=== PATIENT | male | born 1980 | race Two or more races ===

== ENCOUNTER 2023-02-04 07:03 | Outpatient (CLI) | payer OTHER | END 2023-02-04 07:05 | disposition home or self-care (01) | LOC: LAB 07:03 | PROVIDERS: ATTEND Otolaryngology | DX: R22.1 Localized swelling, mass and lump, neck (principal) ==

== ENCOUNTER 2023-02-04 07:28 | Outpatient (CLI) | payer OTHER | END 2023-02-04 08:10 | disposition home or self-care (01) | LOC: TOM 07:28 | PROVIDERS: ATTEND Otolaryngology | DX: R22.1 Localized swelling, mass and lump, neck (principal); Q18.0 Sinus, fistula and cyst of branchial cleft ==

== ENCOUNTER → 2023-04-07 06:24 | Outpatient (CLI) | payer OTHER ==
[2023-04-07 08:11] LABS: ALBUMIN 3.6 gm/dL (3.4-5.0); BILIRUBIN TOTAL 0.59 mg/dL (0.3-1.2); CALCIUM 8.8 mg/dL (8.5-10.1); CREATININE SERUM 0.96 mg/dL (0.70-1.30); GFR 85.09; GLOBULINA 4.1 G/DL (2.4-3.5); POTASSIUM 4.09 mEq/L (3.5-5.1); T4 FREE 1.01 NG/ML (0.76-1.46); TOTAL PROTEIN 7.7 gm/dL (6.4-8.2); TSH 1.02 uIU/mL (0.358-3.74)
== END | disposition home or self-care (01) ==
LOC: LAB 06:24
PROVIDERS: ATTEND Otolaryngology
DX: E04.1 Nontoxic single thyroid nodule (principal)

== ENCOUNTER 2023-04-22 14:06 | Outpatient (CLI) | payer OTHER | END 2023-04-22 14:09 | disposition home or self-care (01) | LOC: SONOGRAMA 14:06 | PROVIDERS: ATTEND Pathology Anatomic Pathology & Clinical Pathology | DX: D17.0 Benign lipomatous neoplasm of skin and subcutaneous tissue of head, face and neck (principal) ==

== ENCOUNTER 2023-06-09 14:53 | Outpatient (CLI) | payer OTHER | END 2023-06-09 14:54 | disposition home or self-care (01) | LOC: LAB 14:53 | PROVIDERS: ATTEND Otolaryngology | DX: Z20.828 Contact with and (suspected) exposure to other viral communicable diseases (principal); R05.9 Cough, unspecified ==

== ENCOUNTER 2023-06-10 07:10 | Day surgery (SDC) | payer OTHER ==
[2023-05-28 11:49] LABS: HEMOGLOBIN 14.4 g/dL (13-16.00); MEAN CELL VOLUME 86.4 fL (80.0-100.00); MEAN CORPUSCULAR HEMOGLOBIN 29.6 pg (27.00-32.0); MEAN CORPUSCULAR HGB CONC 34.3 g/dl (32.0-36.0); PLATELET COUNT 269 K/uL (150-450); RED BLOOD COUNT 4.86 M/uL (4.00-6.00); RED CELL DISTRIBUTION WIDTH 14.2 % (11.5-14.5)
[2023-05-28 11:53] LABS: PH,URINE 5.5 (5.0-8.0); URINE APPEARANCE Clear; URINE BILIRRUBIN Negative (NEGATIVE); URINE BLOOD Small; URINE COLOR Yellow; URINE GLUCOSE Negative (NEGATIVE); URINE LEUKOCYTE Negative; URINE NITRATE Negative; URINE PROTEIN Trace (NEGATIVE)
[2023-05-28 11:55] LABS: URINE EPITHELIAL CELLS 2.9 uL (0.0-38.8); URINE WBC 2.9 uL (0.0-23.2)
[2023-05-28 12:13] LABS: INR 0.98; PARTIAL THROMBOPLASTIN TIME 27.3 SECONDS (22.0-34.0); PROTHROMBIN TIME 10.3 SECONDS (9.0-11.5)
[2023-05-28 12:23] LABS: ALBUMIN 4.1 gm/dL (3.4-5.0); BILIRUBIN TOTAL 0.45 mg/dL (0.3-1.2); CREATININE SERUM 0.93 mg/dL (0.70-1.30); GFR 87.86; POTASSIUM 4.37 mEq/L (3.5-5.1); TOTAL PROTEIN 8.1 gm/dL (6.4-8.2)
[2023-06-10] MEDS ORDERED: CEFAZOLIN SODIUM 1,000 MG VIAL ONE (09:46)
[2023-06-10] MEDS ORDERED: PANTOPRAZOLE SODIUM 40 MG/VIAL VIAL ONE (09:46)
[2023-06-10] MEDS ORDERED: CEFAZOLIN SODIUM 1,000 MG VIAL IV ONE (12:45)
[2023-06-10] MEDS ORDERED: PANTOPRAZOLE SODIUM 40 MG/VIAL VIAL IV ONE (12:45)
== END 2023-06-10 16:05 | disposition home or self-care (01) ==
LOC: CIR.AMB 07:10 → U 07:10 → CIR.AMB 11:45
PROVIDERS: ATTEND Otolaryngology
DX: D17.0 Benign lipomatous neoplasm of skin and subcutaneous tissue of head, face and neck (principal)